=== PATIENT | female | born 1985 | race Asian ===

== ENCOUNTER 2017-05-30 17:01 | Emergency (ER) | payer SELFPAY ==
[~2017-05-30] VITALS: Ht 154.9 cm; Wt 59.0 kg
[2017-05-30 17:15] VITALS: BP 112/64
[2017-05-30] MEDS ORDERED: LIDOCAINE 1% / SOD BICARB 8.4% 20 ML VIAL. IJ ONE (17:45)
[2017-05-30] MEDS ORDERED: HYDROcodone/APAP 5/325MG 1 TAB TABLET PO ONE (17:45)
[2017-05-30] MEDS ORDERED: LIDOCAINE/EPI/TETRACAINE TOPICAL GEL 3 ML. TP ONE (17:45)
[2017-05-30] MEDS ORDERED: ACET-704 PO (18:34)
[2017-05-30] MEDS ORDERED: AMOX1TAB61 PO (18:34)
--- NOTE | 2017-05-30 18:34 | PHYS DOC ---
Past Medical History Past Medical History: No Pertinent History Past Surgical History: No Surgical History Alcohol Use: None Drug Use: None Adult General Chief Complaint Chief Complaint: FOREIGN BODY HPI HPI Patient is a 31 year old female who presents with a fishbone embed in the right hand. Patient states she was cutting fish when her hand slid going into the born.Patient is right-handed. Review of Systems Review of Systems Constitutional: Denies fever or chills [] Eyes: Denies change in visual acuity, redness, or eye pain [] Musculoskeletal: Denies back pain or joint pain [] Integument: Fish bone to the right hand Neurologic: Denies headache, focal weakness or sensory changes [] Endocrine: Denies polyuria or polydipsia [] Current Medications Current Medications Current Medications Medications (Trade) Dose Ordered Sig/Isidoro Start Time Stop Time Status Last Admin Dose Admin Acetaminophen/ Hydrocodone Bitart (Lortab 5/325) 1 tab 1X ONCE 05/30/17 17:45 05/30/17 17:46 DC 05/30/17 17:46 1 TAB Lidocaine/ Epinephrine (Let Topical) 3 ml 1X ONCE 05/30/17 17:45 05/30/17 17:46 DC 05/30/17 17:45 3 ML Lidocaine/Sodium Bicarbonate (Buffered Lidocaine 1%) 20 ml 1X ONCE 05/30/17 17:45 05/30/17 17:46 DC 05/30/17 17:46 20 ML Allergies Allergies Allergies Coded Allergies Type Severity Reaction Last Updated Verified No Known Drug Allergies 05/30/17 No Physical Exam Physical Exam Constitutional: Well developed, well nourished, no acute distress, non-toxic appearance. [] Skin: Warm, dry, no erythema, no rash. [] Back: No tenderness, no CVA tenderness. [] Extremities: Right dorsal hand with the following object consistent with fish bone embed into the skin from the pinky knuckle to the ring finger knuckle. Full range of motion to the right hand fingers. +2 right radial pulse. Adequate ulnar medial and radial sensation to the right fingers. Cap refill less than 2 seconds the right fingers. Neurologic: Alert and oriented X 3, normal motor function, normal sensory function, no focal deficits noted. [] Psychologic: Affect normal, judgement normal, mood normal. [] Current Patient Data Vital Signs Vital Signs Date Time Temp Pulse Resp B/P (MAP) Pulse Ox O2 Delivery O2 Flow Rate FiO2 05/30/17 17:15 98.4 73 18 112/64 (80) 99 Room Air 98.4 EKG EKG [] Radiology/Procedures Radiology/Procedures Indication: Fish bone to the right hand Procedure: The area of the foreign body was right hand. Local anesthesia over the foreign body site was LET and later 1% buffered lidocaine. The area was cleaned with 200 ML of normal saline and Betadine. I tried tugging on the fishbone to remove it with no success. I had to make a 1.5 cm laceration over the bone and separate the skin from the barbed end of the bones piece by piece until the bone was removed. The area was cleaned again with 200 ML of normal saline and 2 loose interrupted stitches using 3. 0 Ethilon were placed over the laceration site. The patient tolerated the procedure well Complications:none Course & Med Decision Making Course & Med Decision Making Pertinent Labs and Imaging studies reviewed. (See chart for details) This is a 31-year-old female patient who presents with fishbone embed in the right hand. Patient is right-handed. Patient's tetanus is up-to-date. X-ray of the right hand was noted for foreign object consistent with fishbone. See the procedure note, I successfully removed the fishbone. I had to place to loose stitches over the area because the opening was very big, jagged and dip. Patient was discharged with Augmentin and Neosporin. Follow-up with her own doctor in 1-2 weeks. She was provided return precautions and discharged in stable condition. Dragon Disclaimer Dragon Disclaimer This electronic medical record was generated, in whole or in part, using a voice recognition dictation system. Departure Departure Impression: Primary Impression: Foreign body of hand, right Disposition: 01 HOME, SELF-CARE Condition: STABLE Referrals: NO PCP (PCP) Follow-up with your own doctor in 1-2 weeks. Patient Instructions: Laceration Care, Adult Additional Instructions: You had fish bone removed from the right hand, keep the hand clean. You can shower. You do not need to cover the area if it's not draining. Apply Neosporin to the area twice a day. Complete your antibiotics. Monitor the area for signs and symptoms of infection including increased redness warmth or odor drainage from the area and return to the ED if they occur. The stitches you have are dissolvable. They will disappear on their own in the next 1-2 weeks. Scripts Acetaminophen With Codeine (TYLENOL WITH CODEINE #3 TABLET) 1 Each Tablet 1 TAB PO PRN Q6HRS Y for PAIN, #30 TAB Prov: JUANITA QUIROZ APRN 05/30/17 Amoxicillin/Potassium Clav (AUGMENTIN 875-125 TABLET) 1 Each Tablet 1 TAB PO BID, #20 TAB Prov: JUANITA QUIROZ APRN 05/30/17 Problem Qualifiers Primary Impression: Foreign body of hand, right Encounter type: initial encounter Qualified Codes: S60.551A - Superficial foreign body of right hand, initial encounter JUANITA QUIROZ APRN May 30, 2017 18:34
--- NOTE | 2017-05-31 09:26 | RAD ---
Indication traumatic injury. Assess for foreign body. AP oblique and lateral views of the right hand were obtained. There is an oblique soft tissue foreign body on the dorsal aspect of the hand at the level of the fourth and fifth metacarpal heads. A bony abnormality is not seen
== END 2017-05-30 18:38 | disposition home or self-care (01) ==
LOC: ER 17:01
DX: S60.551A Superficial foreign body of right hand, initial encounter (principal); X58.XXXA Exposure to other specified factors, initial encounter; Y93.89 Activity, other specified; Y99.8 Other external cause status; Y92.89 Other specified places as the place of occurrence of the external cause
CPT/HCPCS: 10120; 73130; 99285-25

== ENCOUNTER 2020-01-25 19:28 | Emergency (ER) | payer OTHER ==
[~2020-01-25] VITALS: Ht 134.6 cm; Wt 66.2 kg
[~2020-01-25 19:28] MED LIST: ACET-704 PO; AMOX1TAB61 PO
[2020-01-25 19:50] VITALS: BP 108/58
[2020-01-25] MEDS ORDERED: ONDA4TAB12 PO (20:15)
[2020-01-25] MEDS ORDERED: OSEL75CA PO (20:15)
--- NOTE | 2020-01-25 20:15 | PHYS DOC ---
Past Medical History Past Medical History: No Pertinent History Past Surgical History: No Surgical History Smoking Status: Never Smoker Alcohol Use: None Drug Use: None Adult General Chief Complaint Chief Complaint: FLU SYMPTOM HPI HPI Patient is a 34 year old female who presents with fever, cough, runny nose, body aches, loss of appetite that started two days ago. Patient has been able to drink water at home. Patient has been using Flu/cold medicine at home for symptoms. Complete ROS were reviewed and found to be within normal limits, except as documented in the HPI Allergies Allergies Allergies Coded Allergies Type Severity Reaction Last Updated Verified No Known Drug Allergies 05/30/17 No Physical Exam Physical Exam Constitutional: Well developed, well nourished, no acute distress HENT: Normocephalic, atraumatic, bilateral external ears normal, bilateral tympanic membranes are pearly montague, oropharynx moist, no oral exudates, nose turbinates are inflamed. Eyes: PERRLA, EOMI, conjunctiva normal, no discharge. [] Neck: Normal range of motion, no tenderness, supple, no stridor. [] Cardiovascular:Heart rate regular rhythm, no murmur [] Lungs & Thorax: Bilateral breath sounds clear to auscultation [] Abdomen: Bowel sounds normal, soft, no tenderness, no masses, no pulsatile masses. [] Skin: Warm, dry, no erythema, no rash. [] Neurologic: Alert and oriented X 3, normal motor function, normal sensory function, no focal deficits noted. [] Psychologic: Affect normal, judgement normal, mood normal. [] Current Patient Data Vital Signs Vital Signs Date Time Temp Pulse Resp B/P (MAP) Pulse Ox O2 Delivery O2 Flow Rate FiO2 01/25/20 19:50 99.2 20 108/58 (75) 98 Room Air 99.2 EKG EKG [] Radiology/Procedures Radiology/Procedures [] Course & Med Decision Making Course & Med Decision Making Pertinent Labs and Imaging studies reviewed. (See chart for details) The patient appears to have the Flu clinically. Discussed with patient the importance of drinking plenty of fluids. I also discussed the importance of rest. It was discussed with the patient that she is contagious and to stay away from others until it has been a week since the start of her symptoms. Discussed with the patient that she can take Zyrtec per label instructions for runny nose. Also discussed the proper control of fever by rotating Tylenol and Ibuprofen at home. Will also prescribe Zofran for nausea. Will also prescribe Tamiflu. Dragon Disclaimer [place] Disclaimer This electronic medical record was generated, in whole or in part, using a voice recognition dictation system. Departure Departure Impression: Primary Impression: Viral syndrome Disposition: HOME, SELF-CARE Condition: STABLE Referrals: UNKNOWN PCP NAME (PCP) Patient Instructions: Influenza A (H1N1) Additional Instructions: Thank you for visiting [facility]. We appreciate you trusting us with your care. If any additional problems come up don't hesitate to return to visit us. Please follow up with your primary care provider so they can plan additional care if needed and know about the problem that you had. If symptoms worsen come back to the Emergency Department. Any concerning symptoms that start such as chest pain, shortness of air, weakness or numbness on one side of the body, running high fevers or any other concerning symptoms return to the ER. Please fill your medications at any pharmacy and follow the prescription instructions. Please drink plenty of fluids. If unable to keep fluids down please return to ER. Please get Tylenol and Ibuprofen over the counter. Give each medication every 6 hours as directed by the medication labels. In order to utilize the peak of the medications, stagger the medications to where you are getting one of the medications every 3 hours. For example if you give Ibuprofen at 3 PM, you then give Tylenol at 6 PM and Ibuprofen again at 9 PM, and then Tylenol at midnight. Please get Zyrtec over the counter and take per label instructions for runny nose. Scripts Ondansetron (ONDANSETRON ODT) 4 Mg Tab.rapdis 1 TAB PO PRN Q6-8HRS PRN for NAUSEA, #20 TAB Prov: TACOS LY APRN 01/25/20 Oseltamivir Phosphate (TAMIFLU) 75 Mg Capsule 75 MG PO BID for FLU for 5 Days, #10 TAB 0 Refills Prov: TACOS LY APRN 01/25/20 TACOS LY APRN Jan 25, 2020 20:15
== END 2020-01-25 20:33 | disposition home or self-care (01) ==
LOC: ER 19:28
DX: B34.9 Viral infection, unspecified (principal)
CPT/HCPCS: 99283